=== PATIENT | male | born 1975 | race Caucasian/White ===

== ENCOUNTER → 2021-11-06 | Outpatient (CLI) | payer OTHER ==
[~2021-11-06] MED LIST: KEFL500C17 PO; TRAZ-252 PO; no home meds
== END ==
LOC: M RAD 15:57
PROVIDERS: ATTEND Nurse Practitioner Family
DX: M25.512 Pain in left shoulder (principal)

== ENCOUNTER 2024-02-20 09:40 | Day surgery (SDC) | payer OTHER ==
[~2024-02-20] VITALS: Ht 188 cm; Wt 100.7 kg
[~2024-02-20 09:40] MED LIST changes: +IBUP80TA PO; +NS 250 ML IV ONE; +OMEP40CA5 PO
[2024-02-20] MEDS ORDERED: propofoL 200 MG/20 ML VIAL As Ordered ONE (10:16)
[2024-02-20 11:44] VITALS: TEMP 98.6
[2024-02-20 12:02] VITALS: BP 135/94; O2SAT 98
== END 2024-02-20 12:13 | disposition home or self-care (01) ==
LOC: M OPP 09:40
PROVIDERS: ATTEND Surgery
DX: Z12.11 Encounter for screening for malignant neoplasm of colon (principal); Z12.12 Encounter for screening for malignant neoplasm of rectum; K63.5 Polyp of colon; K21.00 Gastro-esophageal reflux disease with esophagitis, without bleeding; K57.30 Diverticulosis of large intestine without perforation or abscess without bleeding; K44.9 Diaphragmatic hernia without obstruction or gangrene; R10.13 Epigastric pain; Z79.899 Other long term (current) drug therapy; Z87.891 Personal history of nicotine dependence